=== PATIENT | male | born 1955 | race Caucasian/White ===

== ENCOUNTER → 2021-08-28 | Outpatient (CLI) | payer OTHER ==
[~2021-08-28] MED LIST: BENAZEPRIL HCT PO; Budeprion Sr150 MG PO; CLON.1 PO; IBUP800 PO; MIGRAINE RELIE1 EACH PO; OMEP20ER PO; PROBIOTIC1 EAC1 PO; TRIA80TC TOP; Zantac150 MG PO
[2021-08-28 19:47] LABS: Free Thyroxine 0.98 ng/dL (0.70-1.60)
[2021-08-28 19:55] LABS: BASOPHILS ABSOLUTE AUTO 0.04 K/mm3 (0.00-0.23); BASOPHILS PERCENT AUTO 1 % (0-2); EOSINOPHILS ABSOLUTE AUTO 0.17 K/mm3 (0.00-0.68); EOSINOPHILS PERCENT AUTO 2 % (0-6); Hematocrit 47.6 % (37.0-53.0); Hemoglobin 15.9 g/dL (13.5-17.5); IMMATURE GRAN ABSOLUTE AUTO 0.04 K/mm3 (0.00-0.10); IMMATURE GRAN PERCENT AUTO 1 % (0-1); LYMPHOCYTES ABSOLUTE AUTO 1.33 K/mm3 (0.84-5.20); LYMPHOCYTES PERCENT AUTO 15 % (21-46); MONOCYTES ABSOLUTE AUTO 0.54 K/mm3 (0.16-1.47); MONOCYTES PERCENT AUTO 6 % (4-13); Mean Corpuscular HGB 30.2 pg (26.0-34.0); Mean Corpuscular HGB Conc 33.4 g/dL (31.5-36.5); Mean Corpuscular Volume 91 fL (80-100); NEUTROPHILS PERCENT AUTO 76 % (41-73); Platelet Count 319 K/mm3 (150-400); Red Blood Cell Count 5.26 M/mm3 (4.30-5.90); White Blood Cell Count 8.72 K/mm3 (4.00-11.30)
== END | disposition home or self-care (01) ==
LOC: LAB SHORT 18:36
PROVIDERS: Physician Assistant
DX: G30.9 Alzheimer's disease, unspecified (principal); R41.3 Other amnesia; R41.89 Other symptoms and signs involving cognitive functions and awareness
CPT/HCPCS: 82607; 82746; 84439; 84443; 85025; 85651; 86592

== ENCOUNTER 2021-11-15 13:08 | Day surgery (SDC) | payer OTHER ==
[~2021-11-15] VITALS: Ht 165.1 cm; Wt 130.0 kg
[~2021-11-15 13:08] MED LIST changes: +BENAZEPRIL-HCT1 EAC3 PO; +HYDPAM25 PO
[2021-11-15] MEDS ORDERED: ATOR40TA (14:17)
[2021-11-15] MEDS ORDERED: METO50ER (14:18)
[2021-11-15] MEDS ORDERED: LOSA25 (14:18)
[2021-11-15] MEDS ORDERED: FLUTICASONE-SA1 EAC1 (14:18)
[2021-11-15] MEDS ORDERED: PANT40 (14:18)
[2021-11-15] MEDS ORDERED: TAMS.4ER (14:18)
[2021-11-15] MEDS ORDERED: Triamcinolone A15 G3 (14:21)
--- NOTE | 2021-11-15 15:51 | NUR ---
11/15/21 155 [address] IV REMOVED FROM HAND FOR DISCHARGE HOME. WITHIN NORMAL LIMITS.
== END 2021-11-15 15:40 | disposition home or self-care (01) ==
LOC: ORSCSDS 13:08
PROVIDERS: Internal Medicine Gastroenterology
PROC: 0DB58ZX Excision of Esophagus, Via Natural or Artificial Opening Endoscopic, Diagnostic (ICD-10-PCS; principal; 2021-11-15 14:45)
DX: K22.70 Barrett's esophagus without dysplasia (principal); K21.9 Gastro-esophageal reflux disease without esophagitis; K44.9 Diaphragmatic hernia without obstruction or gangrene; I10 Essential (primary) hypertension; Z87.891 Personal history of nicotine dependence; Z79.899 Other long term (current) drug therapy; E66.01 Morbid (severe) obesity due to excess calories; Z68.41 Body mass index [BMI] 40.0-44.9, adult; G47.33 Obstructive sleep apnea (adult) (pediatric)
CPT/HCPCS: 88305; J2704; J7120

== ENCOUNTER 2022-11-19 16:23 | Emergency (ER) | payer OTHER ==
[~2022-11-19] VITALS: Ht 172.7 cm; Wt 88.5 kg
[~2022-11-19 16:23] MED LIST changes: +ATOR40TA; +FLUTICASONE-SA1 EAC1; +LOSA25; +METO50ER; +PANT40; +TAMS.4ER; +Triamcinolone A15 G3
[2022-11-19 16:29] VITALS: BP 147/100
== END 2022-11-19 19:33 | disposition home or self-care (01) ==
LOC: ER 16:23
DX: G43.909 Migraine, unspecified, not intractable, without status migrainosus (principal); I10 Essential (primary) hypertension; Z87.891 Personal history of nicotine dependence; Z79.899 Other long term (current) drug therapy; Z88.8 Allergy status to other drugs, medicaments and biological substances; Z88.1 Allergy status to other antibiotic agents; Z88.0 Allergy status to penicillin
CPT/HCPCS: 70450; 96361; 96374; 96375; 99284-25; J0780; J1885; J2405; J7030

== ENCOUNTER → 2023-09-14 | Outpatient (CLI) | payer MEDICARE, OTHER ==
[2023-09-14 19:10] LABS: BASOPHILS ABSOLUTE AUTO 0.02 K/mm3 (0.00-0.23); BASOPHILS PERCENT AUTO 0 % (0-2); EOSINOPHILS ABSOLUTE AUTO 0.07 K/mm3 (0.00-0.68); EOSINOPHILS PERCENT AUTO 1 % (0-6); Hematocrit 41.5 % (37.0-53.0); Hemoglobin 14.2 g/dL (13.5-17.5); IMMATURE GRAN ABSOLUTE AUTO 0.02 K/mm3 (0.00-0.10); IMMATURE GRAN PERCENT AUTO 0 % (0-1); LYMPHOCYTES ABSOLUTE AUTO 1.17 K/mm3 (0.84-5.20); LYMPHOCYTES PERCENT AUTO 23 % (21-46); MONOCYTES ABSOLUTE AUTO 0.48 K/mm3 (0.16-1.47); MONOCYTES PERCENT AUTO 9 % (4-13); Mean Corpuscular HGB 30.7 pg (26.0-34.0); Mean Corpuscular HGB Conc 34.2 g/dL (31.5-36.5); Mean Corpuscular Volume 90 fL (80-100); Mean Platelet Volume 11.2 fL (9.1-12.4); NEUTROPHILS ABSOLUTE AUTO 3.43 K/mm3 (1.96-9.15); NEUTROPHILS PERCENT AUTO 66 % (41-73); Platelet Count 271 K/mm3 (150-400); RDW Coefficient Variation 12.8 % (11.7-14.2); RDW Standard Deviation 41.7 fL (35.1-46.3); Red Blood Cell Count 4.62 M/mm3 (4.30-5.90); White Blood Cell Count 5.19 K/mm3 (4.00-11.30)
[2023-09-14 19:23] LABS: Alanine Aminotransfer (ALT/SGP 26 U/L (12-78); Albumin, Blood 3.1 g/dL (3.4-5.0); Albumin/Globulin Ratio 0.8 (0.8-1.8); Alk Phos 81 U/L (50-136); Anion Gap 10 mmol/L (3-11); Aspartate Aminotrans (AST/SGOT 18 U/L (12-37); Bilirubin, Total 0.4 mg/dL (0.1-1.0); Blood Urea Nitrogen 13 mg/dL (8-24); Bun/Creatinine Ratio 10.3 (12.0-20.0); CHOL/HDL RATIO 4.2; CO2, Blood 24 mmol/L (21-32); Chloride, Blood 114 mmol/L (98-108); Cholesterol 119 mg/dL (50-200); Creatinine, Blood 1.26 mg/dL (0.60-1.20); Globulin, Blood 4.1 g/dL (2.2-4.0); Glomerular Filtration Rate 63 (60-); Glucose, Blood 113 mg/dL (70-99); HDL Cholesterol 28 mg/dL (>39); LDL/HDL RATIO 1.8; Low Density Lipoprotein Chol 50 mg/dL (0-110); Sodium, Blood 144 mmol/L (136-145); Total Protein, Blood 7.2 g/dL (6.4-8.2); Triglycerides 204 mg/dL (30-160); Very Low Density Lipoprot Chol 40 mg/dL (6-32)
== END | disposition home or self-care (01) ==
LOC: LAB SHORT 15:20 → LAB 15:20
PROVIDERS: Physician Assistant
DX: E78.2 Mixed hyperlipidemia (principal); Z79.899 Other long term (current) drug therapy
CPT/HCPCS: 80053; 80061; 82306; 83036; 84443; 85025

== ENCOUNTER → 2023-10-28 | Outpatient (CLI) | payer MEDICARE, OTHER | END | disposition home or self-care (01) | LOC: LAB SHORT 15:24 → LAB 15:24 | PROVIDERS: Family Medicine | DX: R35.0 Frequency of micturition (principal); R33.9 Retention of urine, unspecified; R39.11 Hesitancy of micturition | CPT/HCPCS: 84153 ==

== ENCOUNTER 2024-05-16 13:06 | Emergency (ER) | payer MEDICARE, OTHER ==
[~2024-05-16] VITALS: Ht 172.7 cm; Wt 119.3 kg
[2024-05-16 14:30] LABS: BASOPHILS ABSOLUTE AUTO 0.03 K/mm3 (0.00-0.23); BASOPHILS PERCENT AUTO 0 % (0-2); EOSINOPHILS ABSOLUTE AUTO 0.08 K/mm3 (0.00-0.68); EOSINOPHILS PERCENT AUTO 1 % (0-6); Hematocrit 44.6 % (37.0-53.0); Hemoglobin 15.1 g/dL (13.5-17.5); IMMATURE GRAN ABSOLUTE AUTO 0.04 K/mm3 (0.00-0.10); IMMATURE GRAN PERCENT AUTO 1 % (0-1); LYMPHOCYTES ABSOLUTE AUTO 1.59 K/mm3 (0.84-5.20); LYMPHOCYTES PERCENT AUTO 21 % (21-46); MONOCYTES ABSOLUTE AUTO 0.56 K/mm3 (0.16-1.47); MONOCYTES PERCENT AUTO 7 % (4-13); Mean Corpuscular HGB 30.2 pg (26.0-34.0); Mean Corpuscular HGB Conc 33.9 g/dL (31.5-36.5); Mean Corpuscular Volume 89 fL (80-100); Mean Platelet Volume 10.7 fL (9.1-12.4); NEUTROPHILS ABSOLUTE AUTO 5.25 K/mm3 (1.96-9.15); NEUTROPHILS PERCENT AUTO 70 % (41-73); Platelet Count 230 K/mm3 (150-400); RDW Coefficient Variation 12.8 % (11.7-14.2); RDW Standard Deviation 41.6 fL (35.1-46.3); White Blood Cell Count 7.55 K/mm3 (4.00-11.30)
[2024-05-16 14:31] LABS: Albumin, Blood 3.3 g/dL (3.4-5.0); Bilirubin, Total 0.6 mg/dL (0.1-1.0); Bun/Creatinine Ratio 11.5 (12.0-20.0); Creatinine, Blood 1.04 mg/dL (0.60-1.20); Globulin, Blood 3.4 g/dL (2.2-4.0); Potassium, Blood 3.7 mmol/L (3.5-5.5); Total Protein, Blood 6.7 g/dL (6.4-8.2)
[2024-05-16] MEDS ORDERED: ALLEGRA ALLERGY60 MG PO (15:16)
[2024-05-16 15:24] VITALS: BP 156/97
== END 2024-05-16 15:24 | disposition home or self-care (01) ==
LOC: ER 13:06
PROVIDERS: Emergency Medicine
DX: R42 Dizziness and giddiness (principal); I10 Essential (primary) hypertension; E78.5 Hyperlipidemia, unspecified; K21.9 Gastro-esophageal reflux disease without esophagitis; G47.30 Sleep apnea, unspecified; Z88.8 Allergy status to other drugs, medicaments and biological substances; Z88.1 Allergy status to other antibiotic agents; Z88.0 Allergy status to penicillin; Z79.899 Other long term (current) drug therapy; Z87.891 Personal history of nicotine dependence
CPT/HCPCS: 71046; 80053; 84484; 85025; 93005; 93010; 99285-25

== ENCOUNTER 2024-06-13 11:54 | Emergency (ER) | payer MEDICARE, OTHER ==
[~2024-06-13] VITALS: Ht 172.7 cm; Wt 117.9 kg
[~2024-06-13 11:54] MED LIST changes: +ALLEGRA ALLERGY60 MG PO
[2024-06-13 11:59] VITALS: BP 181/108
[2024-06-13] MEDS ORDERED: Ketorolac Tromethamine 15mg Vial IM ONE (13:00)
[2024-06-13] MEDS ORDERED: LIDO700A20 TOP (13:59)
[2024-06-13] MEDS ORDERED: OXYACE7.5T PO (13:59)
[2024-06-13] MEDS ORDERED: TIZA4 PO (13:59)
== END 2024-06-13 14:33 | disposition home or self-care (01) ==
LOC: ER 11:54
DX: S32.019A Unspecified fracture of first lumbar vertebra, initial encounter for closed fracture (principal); Z88.8 Allergy status to other drugs, medicaments and biological substances; Z88.3 Allergy status to other anti-infective agents; Z88.1 Allergy status to other antibiotic agents; Z79.899 Other long term (current) drug therapy; I10 Essential (primary) hypertension; E78.5 Hyperlipidemia, unspecified; K21.9 Gastro-esophageal reflux disease without esophagitis; G47.30 Sleep apnea, unspecified; Z87.891 Personal history of nicotine dependence; W11.XXXA Fall on and from ladder, initial encounter
CPT/HCPCS: 72131; 96372; 99283-25; J1885

== ENCOUNTER 2024-08-30 06:25 | Day surgery (SDC) | payer MEDICARE, OTHER ==
[~2024-08-30] VITALS: Ht 172.7 cm; Wt 120.0 kg
[~2024-08-30 06:25] MED LIST changes: -ATOR40TA; +ATOR40TA PO; +LIDO700A20 TOP; -LOSA25; +LOSA25 PO; -METO50ER; +METO50ER PO; +OXYACE7.5T PO; -TAMS.4ER; +TAMS.4ER PO; +TIZA4 PO; +Triamcinolone A15 G4 TOP
[2024-08-30 07:24] VITALS: BP 166/95
[2024-08-30] MEDS ORDERED: Lidocaine HCl 2% 20 ML MDV ONE (07:30)
[2024-08-30] MEDS ORDERED: NS 500 ML IV ONE (07:30)
[2024-08-30] MEDS ORDERED: Bupivacaine 0.5% HCl 5 MG/ML 30MLVIAL ONE (07:30)
[2024-08-30] MEDS ORDERED: GABA300 PO (07:33)
[2024-08-30] MEDS ORDERED: LIDO5TO TOP (07:36)
--- NOTE | 2024-08-30 07:45 | NUR ---
PT HERE FOR KYPHOPLASTY OF THE L1. PT NEURO CHECKS ALL W/N/L. VSS. NADN. PT REPORTS USING HIS LIDOCAINE TOPICAL OINTMENT DAILY. DR FOY IN ROOM DISCUSSING PLAN OF CARE.
[2024-08-30] MEDS ORDERED: NS 1,000 ML IV ONE (07:47)
[2024-08-30] MEDS ORDERED: propofoL 20 ML IV ONE (08:02)
[2024-08-30] MEDS ORDERED: Etomidate 2MG / ML 10ML Vial ONE (08:02)
[2024-08-30] MEDS ORDERED: Dexamethasone Sod Phos 10 MG/ML 1ML VIAL ONE (08:03)
[2024-08-30] MEDS ORDERED: Phenylephrine HCl 10mg/ml 1 ml Vial ONE (08:03)
[2024-08-30] MEDS ORDERED: SuccINYLCHOLINE Chloride 100 MG/5 ML 5MLSYR ONE (08:03)
[2024-08-30] MEDS ORDERED: Ondansetron HCl 2 MG / ML 2ML Vial ONE (08:03)
[2024-08-30] MEDS ORDERED: CeFAZolin Sodium 1000 mg Vial ONE (08:03)
[2024-08-30] MEDS ORDERED: Phenylephrine HCl 100 MCG/ML-NS 10MLSYR (1MG/10ML) ONE (08:03)
[2024-08-30] MEDS ORDERED: Rocuronium Bromide 10 MG/ML 5ML Injection IV ONE ×2 (08:03→13:30)
[2024-08-30] MEDS ORDERED: FentaNYL Citrate 50 MCG/ML 2 ML Injection ONE (08:03)
[2024-08-30] MEDS ORDERED: Sugammadex Sodium 200 MG/2ML SDV (100 MG/ML) ONE (08:14)
[2024-08-30] MEDS ORDERED: Lactated Ringer's 1,000 ML IV ONE (09:47)
[2024-08-30 11:37] VITALS: BP 142/90
--- NOTE | 2024-08-30 11:40 | NUR ---
PT BACK TO RECOVERY ROOM FOR CONTINUATION OF CARE. ALL PATIENT NEURO'S INTACT, WNL. PT AWAKE AFTER ANESTHESIA. TOLERATED PROCEDURE WELL. VSS. NADN. WILL CONTINUE TO MONITOR PATIENT'S SENSORY AND MOTORS IN THE LOWER EXTREMITIES.
[2024-08-30 11:45] VITALS: BP 155/92
[2024-08-30 12:15] VITALS: BP 153/89
--- NOTE | 2024-08-30 12:24 | NUR ---
PT NEURO CHECKS WNL. PT RESTING COMFORTABLY. VSS. NADN. DENIES NEEDS OR CONCERNS
[2024-08-30 12:30] VITALS: BP 132/104
--- NOTE | 2024-08-30 13:04 | NUR ---
DR FOY IN ROOM DISCUSSING PLAN OF CARE. SHANE. BARBARA. PT NEURO INTACT. WNL.
[2024-08-30] MEDS ORDERED: Lidocaine HCl 1% 5 ML SYR INFIL ONE (13:30)
--- NOTE | 2024-08-30 13:35 | NUR ---
PT AMBULATES TO AND FROM RESTROOM WITHOUT DIFF. VSS. NADN. NEURO INTACT. WNL. MOTOR AND SENSORY WNL.
--- NOTE | 2024-08-30 13:55 | NUR ---
PT VERBALIZES UNDERSTANDING WRITTEN AND VERBAL INSTRUCTIONS. DENIES QUESTIONS OR CONCERNS. VSS. PT IV DC'D. CATH INTACT. PRESSURE DRESSINGS APPLIED. PT DC TO HOME VIA WC BY DIAL A RIDE.
== END 2024-08-30 13:55 | disposition home or self-care (01) ==
LOC: MHTC 06:25
DX: S32.010K Wedge compression fracture of first lumbar vertebra, subsequent encounter for fracture with nonunion (principal); Z88.8 Allergy status to other drugs, medicaments and biological substances; X58.XXXD Exposure to other specified factors, subsequent encounter
CPT/HCPCS: 22514; 93005; 93010; C1713; C1889; J0330; J0690; J1100; J2371; J2405; J2704; J3010; J7030; J7040; J7120

== ENCOUNTER → 2024-12-26 | Outpatient (CLI) | payer MEDICARE, OTHER ==
[~2024-12-26] MED LIST changes: +GABA300 PO; +LIDO5TO TOP
[2024-12-26 15:51] LABS: BASOPHILS ABSOLUTE AUTO 0.03 K/mm3 (0.00-0.23); BASOPHILS PERCENT AUTO 1 % (0-2); EOSINOPHILS ABSOLUTE AUTO 0.27 K/mm3 (0.00-0.68); EOSINOPHILS PERCENT AUTO 4 % (0-6); Hematocrit 45.5 % (37.0-53.0); Hemoglobin 15.3 g/dL (13.5-17.5); IMMATURE GRAN ABSOLUTE AUTO 0.02 K/mm3 (0.00-0.10); IMMATURE GRAN PERCENT AUTO 0 % (0-1); LYMPHOCYTES ABSOLUTE AUTO 1.26 K/mm3 (0.84-5.20); LYMPHOCYTES PERCENT AUTO 19 % (21-46); MONOCYTES ABSOLUTE AUTO 0.55 K/mm3 (0.16-1.47); MONOCYTES PERCENT AUTO 8 % (4-13); Mean Corpuscular HGB Conc 33.6 g/dL (31.5-36.5); Mean Corpuscular Volume 90 fL (80-100); NEUTROPHILS ABSOLUTE AUTO 4.42 K/mm3 (1.96-9.15); NEUTROPHILS PERCENT AUTO 68 % (41-73); NRBC ABSOLUTE 0.00 K/mm3 (0.00-0.02); NRBC Auto 0.0 /100 WBC (0.0-0.2); Platelet Count 255 K/mm3 (150-400); RDW Coefficient Variation 13.2 % (11.7-14.2); RDW Standard Deviation 43.2 fL (35.1-46.3)
[2024-12-26 16:00] LABS: Alanine Aminotransfer (ALT/SGP 19.0 U/L (12-78); Albumin, Blood 3.4 g/dL (3.4-5.0); Albumin/Globulin Ratio 0.9 (0.8-1.8); Anion Gap 14.0 mmol/L (6-16); Aspartate Aminotrans (AST/SGOT 17.0 U/L (12-37); Bilirubin, Total 0.6 mg/dL (0.1-1.0); Blood Urea Nitrogen 12.0 mg/dL (8-24); CO2, Blood 27.0 mmol/L (21-32); Calcium, Blood 9.4 mg/dL (8.5-10.1); Chloride, Blood 105.0 mmol/L (98-108); Creatinine, Blood 1.28 mg/dL (0.60-1.20); Globulin, Blood 4.0 g/dL (2.2-4.0); Glucose, Blood 91.0 mg/dL (70-99); Magnesium, Blood 2.1 mg/dL (1.6-2.4); Phosphorus, Blood 3.4 mg/dL (2.5-4.9); Potassium, Blood 3.8 mmol/L (3.5-5.5); Sodium, Blood 142.0 mmol/L (136-145); Total Protein, Blood 7.4 g/dL (6.4-8.2)
== END ==
LOC: LAB SHORT 15:46 → LAB 15:46
PROVIDERS: Family Medicine
DX: R60.9 Edema, unspecified (principal)
CPT/HCPCS: 80053; 83735; 83880; 84100; 85025

== ENCOUNTER → 2025-01-11 | Outpatient (CLI) | payer MEDICARE, OTHER ==
[2025-01-11 17:59] LABS: Alanine Aminotransfer (ALT/SGP 21 U/L (12-78); Albumin, Blood 3.6 g/dL (3.4-5.0); Albumin/Globulin Ratio 1.0 (0.8-1.8); Anion Gap 6 mmol/L (3-11); Aspartate Aminotrans (AST/SGOT 13 U/L (12-37); Bilirubin, Total 0.6 mg/dL (0.1-1.0); Blood Urea Nitrogen 21 mg/dL (8-24); CHOL/HDL RATIO 3.5; CO2, Blood 28 mmol/L (21-32); Calcium, Blood 9.1 mg/dL (8.5-10.1); Chloride, Blood 108 mmol/L (98-108); Cholesterol 119 mg/dL (50-200); Creatinine, Blood 1.11 mg/dL (0.60-1.20); Globulin, Blood 3.5 g/dL (2.2-4.0); Glucose, Blood 117 mg/dL (70-99); HDL Cholesterol 34 mg/dL (>39); LDL/HDL RATIO 1.7; Low Density Lipoprotein Chol 57 mg/dL (0-110); Potassium, Blood 3.3 mmol/L (3.5-5.5); Sodium, Blood 139 mmol/L (136-145); Thyroid Stimulating Hormone 1.340 uIU/mL (0.360-4.800); Total Protein, Blood 7.1 g/dL (6.4-8.2); Triglycerides 141 mg/dL (30-160); Very Low Density Lipoprot Chol 28 mg/dL (6-32)
== END ==
LOC: LAB SHORT 10:50 → LAB 10:50
PROVIDERS: Student in an Organized Health Care Education/Training Program
DX: E78.5 Hyperlipidemia, unspecified (principal); E11.42 Type 2 diabetes mellitus with diabetic polyneuropathy; E11.22 Type 2 diabetes mellitus with diabetic chronic kidney disease; N18.31 Chronic kidney disease, stage 3a; Z79.899 Other long term (current) drug therapy
CPT/HCPCS: 80053; 80061; 82607; 82746; 83036; 84443

== ENCOUNTER 2025-02-03 11:42 | Emergency (ER) | payer MEDICARE, OTHER ==
[~2025-02-03] VITALS: Ht 172.7 cm; Wt 117.9 kg
[2025-02-03 12:58] LABS: BASOPHILS ABSOLUTE AUTO 0.03 K/mm3 (0.00-0.23); BASOPHILS PERCENT AUTO 0 % (0-2); EOSINOPHILS ABSOLUTE AUTO 0.29 K/mm3 (0.00-0.68); EOSINOPHILS PERCENT AUTO 4 % (0-6); Hematocrit 42.2 % (37.0-53.0); Hemoglobin 13.8 g/dL (13.5-17.5); IMMATURE GRAN ABSOLUTE AUTO 0.04 K/mm3 (0.00-0.10); IMMATURE GRAN PERCENT AUTO 1 % (0-1); LYMPHOCYTES ABSOLUTE AUTO 1.68 K/mm3 (0.84-5.20); LYMPHOCYTES PERCENT AUTO 20 % (21-46); MONOCYTES ABSOLUTE AUTO 0.74 K/mm3 (0.16-1.47); MONOCYTES PERCENT AUTO 9 % (4-13); Mean Corpuscular HGB Conc 32.7 g/dL (31.5-36.5); Mean Corpuscular Volume 93 fL (80-100); NEUTROPHILS ABSOLUTE AUTO 5.52 K/mm3 (1.96-9.15); NEUTROPHILS PERCENT AUTO 67 % (41-73); NRBC ABSOLUTE 0.00 K/mm3 (0.00-0.02); NRBC Auto 0.0 /100 WBC (0.0-0.2); Platelet Count 211 K/mm3 (150-400); RDW Coefficient Variation 13.2 % (11.7-14.2); RDW Standard Deviation 44.3 fL (35.1-46.3)
[2025-02-03 13:22] LABS: Alanine Aminotransfer (ALT/SGP 23.0 U/L (12-78); Albumin, Blood 3.1 g/dL (3.4-5.0); Albumin/Globulin Ratio 0.9 (0.8-1.8); Anion Gap 8.0 mmol/L (3-11); Aspartate Aminotrans (AST/SGOT 20.0 U/L (12-37); Bilirubin, Total 0.3 mg/dL (0.1-1.0); Blood Urea Nitrogen 19.0 mg/dL (8-24); CO2, Blood 25.0 mmol/L (21-32); Calcium, Blood 8.4 mg/dL (8.5-10.1); Chloride, Blood 109.0 mmol/L (98-108); Creatinine, Blood 1.22 mg/dL (0.60-1.20); Globulin, Blood 3.3 g/dL (2.2-4.0); Glucose, Blood 87.0 mg/dL (70-99); Potassium, Blood 3.9 mmol/L (3.5-5.5); Sodium, Blood 138.0 mmol/L (136-145); Total Protein, Blood 6.4 g/dL (6.4-8.2)
[2025-02-03] MEDS ORDERED: FUROSEMIDE40 MG PO (15:54)
[2025-02-03] MEDS ORDERED: FLUTICASONE-SA1 EAC9 IH (15:56)
[2025-02-03] MEDS ORDERED: POTASSIUM IV (15:57)
[2025-02-03] MEDS ORDERED: FURO20 PO (16:19)
[2025-02-03] MEDS ORDERED: DiphenhydrAMINE HCl 50 MG/ML 1ML Vial IV ONE (16:20)
[2025-02-03 21:00] VITALS: BP 127/59
[2025-02-03] MEDS ORDERED: Atarax10 MG PO (21:16)
== END 2025-02-03 21:28 | disposition home or self-care (01) ==
LOC: ER 11:42
PROVIDERS: Physician Assistant
DX: M79.89 Other specified soft tissue disorders (principal); K21.9 Gastro-esophageal reflux disease without esophagitis; E78.5 Hyperlipidemia, unspecified; G47.30 Sleep apnea, unspecified; I10 Essential (primary) hypertension; Z59.00 Homelessness unspecified; Z87.891 Personal history of nicotine dependence; Z79.51 Long term (current) use of inhaled steroids; Z79.899 Other long term (current) drug therapy; Z88.1 Allergy status to other antibiotic agents; Z88.8 Allergy status to other drugs, medicaments and biological substances
CPT/HCPCS: 71046; 80053; 83880; 85025; 93005; 93010; 96374; 96375; 99284-25; J1200; J1938

== ENCOUNTER → 2025-02-07 | Outpatient (CLI) | payer MEDICARE, OTHER ==
[~2025-02-07] MED LIST changes: +Atarax10 MG PO; +FLUTICASONE-SA1 EAC9 IH; +FURO20 PO; +FUROSEMIDE40 MG PO; +POTASSIUM IV
[2025-02-08 09:05] LABS: Anion Gap 9.0 mmol/L (3-11); Blood Urea Nitrogen 18.0 mg/dL (8-24); CO2, Blood 26.0 mmol/L (21-32); Calcium, Blood 8.8 mg/dL (8.5-10.1); Chloride, Blood 104.0 mmol/L (98-108); Creatinine, Blood 1.34 mg/dL (0.60-1.20); Glucose, Blood 104.0 mg/dL (70-99); Magnesium, Blood 2.0 mg/dL (1.6-2.4); Potassium, Blood 3.8 mmol/L (3.5-5.5); Sodium, Blood 135.0 mmol/L (136-145)
== END | disposition home or self-care (01) ==
LOC: LAB SHORT 18:01 → LAB 18:01
PROVIDERS: Student in an Organized Health Care Education/Training Program
DX: E87.6 Hypokalemia (principal); I50.30 Unspecified diastolic (congestive) heart failure
CPT/HCPCS: 80048; 83735